=== PATIENT | female | born 1970 | race Caucasian/White ===

== ENCOUNTER 2021-07-05 20:12 | Observation (INO) ==
[2021-07-05] MEDS ORDERED: FAMOTIDINE 20MG IV PUSH 20 MG/5 ML SYR IV STA (20:32)
[2021-07-05] MEDS ORDERED: methylPREDNISolone 125 MG/2 ML VIAL IV STA (20:32)
[2021-07-05] MEDS ORDERED: RACEPINEPHRINE 2.25% NEBU SOLN 0.5 ML VIAL NEB STA ×2 (20:32→23:13)
[2021-07-05] MEDS ORDERED: diphenhydrAMINE 50 MG/ML VIAL IV STA ×2 (20:32→20:41)
[2021-07-05] MEDS ORDERED: diphenhydrAMINE 50 MG/ML VIAL ONE (20:33)
--- NOTE | 2021-07-05 20:34 | Emergency Department Note ---
History of Present Illness General Chief complaint: Allergic Reaction Stated complaint: ALLERGIC REACTION Source: patient Mode of arrival: ambulatory Limitations: no limitations History of Present Illness Provider complaint: voice change, trouble swallowing Onset (ago): hour(s) Location: neck Treatments prior to arrival: none This is a 50-year-old female who presents to the emergency department in significant distress complaining of inability to swallow and sense of throat swelling shut. Patient quickly brought back to D6 by triage nurse and I was called to the room. Patient reported to myself and staff that she had eaten at [employer] just before symptoms started. No prior history of allergic reactions. No known food allergies. No family history of anaphylaxis. Additional history initially deferred due to clinical acuity and patient was quickly treated with multiple medications including IM epinephrine as well as racemic epinephrine. Pt seen during a time of high acuity and national emergency pandemic while wearing PPE. Home Medications Medication Instructions Recorded Confirmed Type citalopram 10 mg tablet (Celexa) 10 mg PO QAM 03/10/21 07/05/21 History cyclosporine 0.05 % eye drops in a 1 drp OPHTHALMIC (EYE) Q12H 03/10/21 07/05/21 History dropperette (Restasis) glucosamine-chondroitin 250 mg-200 2 tab PO QAM 03/10/21 07/05/21 History mg tablet (Osteo Bi-Flex) loratadine 10 mg tablet 10 mg PO QAM PRN 03/10/21 07/05/21 History multivitamin 1 tab PO QAM 03/10/21 07/05/21 History multivitamin 2 tab PO QAM 03/10/21 07/05/21 History olopatadine 0.1 % eye drops 1 drp OPB BID PRN 03/10/21 07/05/21 History wheat dextrin 1 gram chewable 2 g PO QAM 03/10/21 07/05/21 History tablet Allergies Allergy/AdvReac Type Severity Reaction Status Date / Time morphine Allergy Intermediate itching, Verified 07/05/21 22:44 vomiting oxycodone Allergy Intermediate headache, Verified 07/05/21 22:44 vomiting, claminess, unconciousness codeine Allergy Unknown VOMITING Verified 07/05/21 22:44 hydrocodone AdvReac Mild VOMITING Verified 07/05/21 22:44 Past Med/Surg History Social History Smoking Status: Current every day smoker Feels Safe at Home: Yes Review of Systems A total of 10 systems reviewed and were otherwise negative All systems reviewed & are unremarkable except as noted in HPI & below Physical Exam Vital Signs Vital Signs - 24 hr 07/05/21 20:13 07/05/21 20:45 07/05/21 20:57 Temperature 36.6 C Temperature Source Temporal Artery Scan Pulse Rate 72 Pulse Rate [Apical] 99 H 95 H Pulse Rate from SpO2 Sensor Pulse Rhythm Respiratory Rate 16 30 H 28 H Respiratory Effort / Characteristics Blood Pressure 148/78 H Blood Pressure [Right Arm] 136/95 131/67 Blood Pressure Mean 101 Blood Pressure Mean [Right Arm] 108 88 Blood Pressure Position Sitting Pulse Oximetry 100 100 99 Oxygen Delivery Method Room Air Room Air Room Air Sepsis Recent Fever Within 48 Hours No Sepsis New/Unexplained Change in Mental Status No Sepsis Action Taken by Nursing No Action Required 07/05/21 21:01 07/05/21 21:15 07/05/21 21:29 Temperature Temperature Source Pulse Rate 88 87 Pulse Rate [Apical] 97 H Pulse Rate from SpO2 Sensor 87 Pulse Rhythm Regular Respiratory Rate 25 H 17 18 Respiratory Effort / Characteristics Blood Pressure 114/80 Blood Pressure [Right Arm] 127/66 Blood Pressure Mean 91 Blood Pressure Mean [Right Arm] 86 Blood Pressure Position Pulse Oximetry 99 100 100 Oxygen Delivery Method Room Air Room Air Room Air Sepsis Recent Fever Within 48 Hours Sepsis New/Unexplained Change in Mental Status Sepsis Action Taken by Nursing 07/05/21 21:30 07/05/21 22:00 07/05/21 22:30 Temperature Temperature Source Pulse Rate 87 88 89 Pulse Rate [Apical] Pulse Rate from SpO2 Sensor 87 87 89 Pulse Rhythm Respiratory Rate 15 16 13 Respiratory Effort / Characteristics Blood Pressure 126/69 132/66 124/66 Blood Pressure [Right Arm] Blood Pressure Mean 88 88 85 Blood Pressure Mean [Right Arm] Blood Pressure Position Pulse Oximetry 100 100 99 Oxygen Delivery Method Room Air Room Air Room Air Sepsis Recent Fever Within 48 Hours Sepsis New/Unexplained Change in Mental Status Sepsis Action Taken by Nursing 07/05/21 22:35 07/05/21 23:11 07/05/21 23:20 Temperature Temperature Source Pulse Rate Pulse Rate [Apical] 82 93 H Pulse Rate from SpO2 Sensor Pulse Rhythm Respiratory Rate 14 18 Respiratory Effort / Characteristics Non-Labored Spontaneous Blood Pressure Blood Pressure [Right Arm] 139/62 Blood Pressure Mean Blood Pressure Mean [Right Arm] 87 Blood Pressure Position Pulse Oximetry 100 100 100 Oxygen Delivery Method Room Air Room Air Sepsis Recent Fever Within 48 Hours Sepsis New/Unexplained Change in Mental Status Sepsis Action Taken by Nursing 07/06/21 00:05 Temperature Temperature Source Pulse Rate Pulse Rate [Apical] 82 Pulse Rate from SpO2 Sensor Pulse Rhythm Respiratory Rate 14 Respiratory Effort / Characteristics Blood Pressure Blood Pressure [Right Arm] 132/63 Blood Pressure Mean Blood Pressure Mean [Right Arm] 86 Blood Pressure Position Pulse Oximetry 100 Oxygen Delivery Method Room Air Sepsis Recent Fever Within 48 Hours Sepsis New/Unexplained Change in Mental Status Sepsis Action Taken by Nursing GENERAL: alert, anxious appearing, well nourished, moderate distress, hands on throat and upper chest, no obvious facial swelling EYE EXAM: normal conjunctiva, PERRL and EOM's grossly intact OROPHARYNX: no exudate, no erythema, lips, buccal mucosa, and tongue normal and mucous membranes are moist, uvula midline, no tonsillar hypertrophy, no tongue swelling, tongue elevation, soft palate edema, or mucocutaneous lesions NECK: supple, no nuchal rigidity, no adenopathy, non-tender, no stridor LUNGS: Clear to auscultation. Normal chest wall mechanics, no w/r/r, mild tachypnea noted, no hypoxia on telemetry HEART: no murmurs, S1 normal and S2 normal ABDOMEN: abdomen soft, non-tender, normo-active bowel sounds, no masses, no rebound or guarding. BACK: Back is symmetrical on inspection and there is no deformity, no midline tenderness, no CVA tenderness. SKIN: no rashes and no bruising, no urticaria, no diffuse erythroderma UPPER EXTREMITIES: upper extremities are grossly normal. FROM, nml pulses b/l. LOWER EXTREMITIES: No pitting edema. FROM, nml pulses b/l. NEURO EXAM: Normal sensorium, cranial nerves II-XII grossly intact, normal speech, no gross weakness of arms, no gross weakness of legs. Gross sensation intact. Course Course 2035: Remained patient bedside monitoring for changes in her condition well treatment was being initiated and given for 20 minutes. Patient began to show improvement after administration of medications and racemic epi. Patient never tachycardic, no ectopy or dysrhythmia noted. Patient never hypotensive, never hypoxic. Slowly voice began to improve after additional racemic epinephrine given. Patient states no other new food earlier in the day, no other change in activity, no recent travel, no recent exposures. No recent fevers, chills, or sick contacts. No recent sore throat. Patient denies any gagging or choking, no sense of food stuck in his throat or lower esophagus. No hx of GERD. 2255: Pt states feeling improved. Voice almost back to normal. Patient still with intermittent chest burning. 2312: Pt c/o recurrent trouble swallowing and sense of throat swelling. 2354: Patient complaining of nausea although voice and throat swelling seem improved again. Administered Medications Discontinued Medications Diphenhydramine HCl (Diphenhydramine 50 Mg/Ml Vial) 25 mg IV NOW STA Stop: 07/05/21 20:33 Last Admin: 07/05/21 21:00 Dose: Not Given Documented by: [id number] Diphenhydramine HCl (Diphenhydramine 50 Mg/Ml Vial) Confirm Administered Dose 50 mg .ROUTE .[employer]-MED ONE Stop: 07/05/21 20:34 Last Admin: 07/05/21 20:59 Dose: Not Given Documented by: [id number] Diphenhydramine HCl (Diphenhydramine 50 Mg/Ml Vial) 25 mg IV NOW STA Stop: 07/05/21 20:42 Last Admin: 07/05/21 20:35 Dose: 25 mg Documented by: [id number] Epinephrine (Racepinephrine 2.25% Nebu Soln 0.5 Ml Vial) 0.5 ml NEB NOW STA Stop: 07/05/21 20:33 Last Admin: 07/05/21 20:58 Dose: 0.5 ml Documented by: [id number] Epinephrine (Racepinephrine 2.25% Nebu Soln 0.5 Ml Vial) 0.5 ml NEB NOW STA Stop: 07/05/21 23:14 Last Admin: 07/05/21 23:18 Dose: 0.5 ml Documented by: [id number] Epinephrine HCl (Epinephrine Inj 1 Mg/Ml Amp) Confirm Administered Dose 1 mg .ROUTE .STK-MED ONE Stop: 07/05/21 20:40 Last Admin: 07/05/21 20:58 Dose: Not Given Documented by: [id number] Epinephrine HCl (Epinephrine Adult Auto-Inject 0.3 Mg Syr) 0.3 mg IM NOW STA Stop: 07/05/21 20:41 Last Admin: 07/05/21 20:58 Dose: Not Given Documented by: [id number] Epinephrine HCl (Epinephrine Adult Auto-Inject 0.3 Mg Syr) Confirm Administered Dose 0.3 mg IM .STK-MED ONE Stop: 07/05/21 20:42 Last Admin: 07/05/21 20:40 Dose: 0.3 mg Documented by: [id number] Sodium Chloride (Nss) 500 mls @ 999 mls/hr IV .Q31M JUAQUIN Stop: 07/05/21 21:15 Last Infusion: 07/05/21 21:07 Dose: 0 mls/hr Documented by: [id number] Admin: 07/05/21 20:35 Dose: 999 mls/hr Documented by: [id number] Famotidine (Pepcid 20mg Iv Push) 20 mg in 5 mls @ 2.5 mls/min IV NOW STA Stop: 07/05/21 20:33 Last Admin: 07/05/21 20:35 Dose: 2.5 mls/min Documented by: [id number] Methylprednisolone (Methylprednisolone 125 Mg/2 Ml Vial) 125 mg IV NOW STA Stop: 07/05/21 20:33 Last Admin: 07/05/21 20:35 Dose: 125 mg Documented by: [id number] Ondansetron HCl (Ondansetron Inj 2 Mg/Ml 2 Ml Vial) 4 mg IV NOW STA Stop: 07/05/21 21:20 Last Admin: 07/05/21 21:30 Dose: 4 mg Documented by: [id number] Critical Care Time Critical Care Time: Yes Total Critical Care Time: 46 Critical care of 46 min performed to assess and manage high likelihood of life-threatening allergic reaction, involving labs and imaging performed with assessment to evaluate allergic reaction diagnosis with frequent reassessment. This time includes bedside time, treatment discussions with patient/family/consultants, documentation time and excludes procedure time. Medical Decision Making Differential Diagnosis Differential diagnosis includes but is not limited to anaphylaxis, generalized allergic reaction, medication reaction, urticaria, contact dermatitis, scarlet fever, David-Han syndrome, Toxic Epidermal necrolysis Medical Records Attestation: I reviewed the patient's medical records. Home Medications Current Medication List: was personally reviewed by me Laboratory Data Attestation: I reviewed the patient's lab results. Result diagrams: 07/05/21 20:46 07/05/21 20:46 Lab Results 07/05/21 07/05/21 07/05/21 Range/Units 20:46 20:46 20:46 WBC 5.73 (4.8-10.8) K/uL RBC 4.56 (4.2-5.4) M/uL Hgb 14.9 (12.0-16.0) g/dL Hct 42.1 (37-47) % MCV 92.3 (80-100) fL MCH 32.7 (25-34) pg MCHC 35.4 (32-36) g/dL RDW Std Deviation 41.5 (36.4-46.3) fL RDW Coeff of Craig 12.3 (11.5-14.5) % Plt Count 305 (130-400) K/uL MPV 10.4 (7.4-10.4) fL Immature Gran % (Auto) 0.2 % Neut % (Auto) 51.5 % Lymph % (Auto) 41.0 % [place] % (Auto) 5.9 % Eos % (Auto) 0.9 % Baso % (Auto) 0.5 % Neut # (Auto) 2.95 (1.4-6.5) K/uL Lymph # (Auto) 2.35 (1.2-3.4) K/uL [place] # (Auto) 0.34 (0.11-0.59) K/uL Eos # (Auto) 0.05 (0-0.5) K/uL Baso # (Auto) 0.03 (0-0.2) K/uL Immature Gran # (Auto) 0.01 (0.00-0.02) K/uL APTT 29.0 (21.0-31.0) Seconds PTT Ratio 1.1 Sodium 139 (136-145) mmol/L Potassium 3.2 L (3.5-5.1) mmol/L Chloride 107 (98-107) mmol/L Carbon Dioxide 25 (21-32) mmol/L Anion Gap 8.0 (3-11) BUN 16 (7-18) mg/dl Creatinine 0.78 (0.6-1.2) mg/dl Est Cr Clr Drug Dosing 92.3 ml/min Est GFR ( Amer) 102.0 ml/min Est GFR (Non-Af Amer) 88.0 ml/min BUN/Creatinine Ratio 21.0 H (10-20) Glucose 88 (70-99) mg/dl Calcium 9.5 (8.5-10.1) mg/dl Magnesium 2.3 (1.8-2.4) mg/dl Total Bilirubin 0.5 (0.2-1) mg/dl AST 29 (15-37) U/L ALT 41 (12-78) U/L Alkaline Phosphatase 73 (45-117) U/L Troponin I < 0.015 (0-0.045) ng/ml NT-Pro-B Natriuret Pep 40 (0-900) pg/ml Total Protein 8.2 (6.4-8.2) gm/dl Albumin 4.4 (3.4-5.0) gm/dl Globulin 3.8 (2.5-4.0) gm/dl Albumin/Globulin Ratio 1.2 (0.9-2) COVID-19 Eval Order 07/06/21 Range/Units 00:10 WBC (4.8-10.8) K/uL RBC (4.2-5.4) M/uL Hgb (12.0-16.0) g/dL Hct (37-47) % MCV (80-100) fL MCH (25-34) pg MCHC (32-36) g/dL RDW Std Deviation (36.4-46.3) fL RDW Coeff of Craig (11.5-14.5) % Plt Count (130-400) K/uL MPV (7.4-10.4) fL Immature Gran % (Auto) % Neut % (Auto) % Lymph % (Auto) % [place] % (Auto) % Eos % (Auto) % Baso % (Auto) % Neut # (Auto) (1.4-6.5) K/uL Lymph # (Auto) (1.2-3.4) K/uL [place] # (Auto) (0.11-0.59) K/uL Eos # (Auto) (0-0.5) K/uL Baso # (Auto) (0-0.2) K/uL Immature Gran # (Auto) (0.00-0.02) K/uL APTT (21.0-31.0) Seconds PTT Ratio Sodium (136-145) mmol/L Potassium (3.5-5.1) mmol/L Chloride (98-107) mmol/L Carbon Dioxide (21-32) mmol/L Anion Gap (3-11) BUN (7-18) mg/dl Creatinine (0.6-1.2) mg/dl Est Cr Clr Drug Dosing ml/min Est GFR ( Amer) ml/min Est GFR (Non-Af Amer) ml/min BUN/Creatinine Ratio (10-20) Glucose (70-99) mg/dl Calcium (8.5-10.1) mg/dl Magnesium (1.8-2.4) mg/dl Total Bilirubin (0.2-1) mg/dl AST (15-37) U/L ALT (12-78) U/L Alkaline Phosphatase (45-117) U/L Troponin I (0-0.045) ng/ml NT-Pro-B Natriuret Pep (0-900) pg/ml Total Protein (6.4-8.2) gm/dl Albumin (3.4-5.0) gm/dl Globulin (2.5-4.0) gm/dl Albumin/Globulin Ratio (0.9-2) COVID-19 Eval Order Covid19 at [facility] Imaging Data Radiologist's Impression: Chest X-Ray 07/05/21 20:42 SINGLE VIEW CHEST CLINICAL HISTORY: Atypical chest pain. Dyspnea. FINDINGS: An AP, portable, upright chest radiograph is compared to chest x-ray and chest CT dated 03/10/2021. The cardiomediastinal silhouette is unremarkable. There is mild bibasilar atelectasis. The lungs and pleural spaces are otherwise clear. No pneumothorax is seen. The bony thorax is grossly intact. IMPRESSION: No active disease in the chest. ACT 112: Negative or not required by law. Electronically signed by: Miguel Smith M.D. 07/05/2021 9:18 PM ECG Data Attestation: I personally reviewed and interpreted this ECG as follows: Indication: + chest pain Rate (beats per minute): 98 Rhythm: + normal sinus ECG Intervals/blocks: + Normal QRS and + Normal QT ECG [place]: + Normal ECG ST segments: + ST depression (II, V3-6) Additional Comments: Repeat EKG shows normal sinus rhythm at 83, normal axis, normal QRS and QTc, previously seen ST depression has resolved MDM Narrative This is a 50-year-old female presents emergency department after she began developing dysphonia, dysphagia, and sense of throat swelling after eating at [employer]. Prior history of anaphylaxis, no known food allergies. Patient brought immediately back and I was asked to see the patient emergently. IV placed, patient given Solu-Medrol, Benadryl, Pepcid, and racemic epinephrine ordered. RT was contacted to administer this. Patient continued to states she felt worse and was becoming more tachypneic, complaining of chest burning and being unable to swallow, as a result of her reported worsening symptoms, IM epinephrine was also added and administered. Patient began to report improvement following all of these medications. Patient was monitored on telemetry throughout. It was noted the patient's first EKG did have some slight ST depression and on repeat follow-up after her symptoms had improved these ST depressions were gone. I suspect this is likely component of vasospasm related to her allergic reaction such as Kounis Syndrome. While being observed in the emergency room patient did have recurrent sense that her throat was becoming tight and swelling again, she began having worsening dysphonia again, so an additional racemic epinephrine was added. Due to need for recurrent racemic epinephrine and concern for significant initial reaction as well as possible vasospasm and need to monitor for cardiac manifestations due to intermittent reported chest discomfort, case was discussed with hospitalist for additional evaluation and management. Katherin solis did not have any hypoxia or hypotension in the emergency room. No other evidence of evolving angioedema or urticarial rash. Patient verbalized understanding of all results and was in agreement with plan. No other risk factors for ACS. An order was placed for continuous cardiac monitoring. The monitor shows a rate of _92_ with _normal sinus_ rhythm. Impression & Plan Allergic reaction, Dysphonia, Dysphagia, Abnormal ECG Discharge Plan Visit Data Chief Complaint: Allergic Reaction Stated Complaint: ALLERGIC REACTION ED Provider: Lisbeth Estrada Discharge Problem: Allergic reaction, Dysphonia, Dysphagia, Abnormal ECG Forms Stand Alone Forms: [facility] Prescriptions Prescriptions: No Action multivitamin [Hair,Nails and Skin Vitamin] Tablet 2 tab PO QAM RF: 0 multivitamin Tablet 1 tab PO QAM RF: 0 citalopram [Celexa] 10 mg tablet 10 mg PO QAM RF: 0 olopatadine 0.1 % drops 1 drp OPB BID PRN (Reason: Allergy Symptoms) RF: 0 loratadine 10 mg Tablet 10 mg PO QAM PRN (Reason: Allergy Symptoms) RF: 0 glucosamine-chondroitin [Osteo Bi-Flex] 250-200 mg Tablet 2 tab PO QAM RF: 0 Restasis 0.05 % Dropperette 1 drp OPHTHALMIC (EYE) Q12H RF: 0 Benefiber Sugar Free (dextrin) 1 gram Tablet,Chewable 2 g PO QAM RF: 0 Referrals Referrals: Teri Humphreys DO [Primary Care Provider] - Discharge Problem: Allergic reaction Qualifiers: Encounter type: initial encounter Qualified Code(s): T78.40XA - Allergy, unspecified, initial encounter Dysphagia Qualifiers: Dysphagia type: unspecified Qualified Code(s): R13.10 - Dysphagia, unspecified
[2021-07-05] MEDS ORDERED: EPINEPHrine INJ 1 MG/ML AMP ONE (20:39)
[2021-07-05] MEDS ORDERED: EPINEPHrine ADULT AUTO-INJECT 0.3 MG SYR IM STA (20:40)
[2021-07-05] MEDS ORDERED: EPINEPHrine ADULT AUTO-INJECT 0.3 MG SYR IM ONE (20:41)
[2021-07-05] MEDS ORDERED: SODIUM CHLORIDE 0.9% 500 ML IV SCH (20:45)
[2021-07-05] MEDS ORDERED: ONDANSETRON INJ 2 MG/ML 2 ML VIAL IV STA (21:19)
--- NOTE | 2021-07-05 21:19 | XRay Report ---
SINGLE VIEW CHEST CLINICAL HISTORY: Atypical chest pain. Dyspnea. FINDINGS: An AP, portable, upright chest radiograph is compared to chest x-ray and chest CT dated 02/23. The cardiomediastinal silhouette is unremarkable. There is mild bibasilar atelectasis. The peyman ngs and pleural spaces are otherwise clear. No pneumothorax is seen. The bony thorax is grossly intac t. IMPRESSION: No active disease in the chest. ACT 112: Negative or not required by law. Electronically signed by: Miguel Smith M.D. 07/05/2021 9:18 PM
[2021-07-05 21:20] LABS: Basophils # (auto) 0.03 K/uL (0-0.2); Basophils % (auto) 0.5 %; Eosinophils # (auto) 0.05 K/uL (0-0.5); Eosinophils % (auto) 0.9 %; Hematocrit (blood only) 42.1 % (37-47); Hemoglobin 14.9 g/dL (12.0-16.0); Immature Granulocytes # (auto) 0.01 K/uL (0.00-0.02); Immature Granulocytes % (auto) 0.2 %; Lymphocytes # (auto) 2.35 K/uL (1.2-3.4); Mean Corpuscular Hemoglobin 32.7 pg (25-34); Mean Corpuscular Hgb Conc 35.4 g/dL (32-36); Mean Corpuscular Volume 92.3 fL (80-100); Mean Platelet Volume 10.4 fL (7.4-10.4); Monocytes # (auto) 0.34 K/uL (0.11-0.59); Monocytes % (auto) 5.9 %; Neutrophils # (auto) 2.95 K/uL (1.4-6.5); Neutrophils % (auto) 51.5 %; Platelet Count 305 K/uL (130-400); RDW Coefficient of Variation 12.3 % (11.5-14.5); RDW Standard Deviation 41.5 fL (36.4-46.3); Red Blood Count 4.56 M/uL (4.2-5.4); White Blood Count 5.73 K/uL (4.8-10.8)
[2021-07-05 21:28] LABS: Alanine Aminotransferase 41 U/L (12-78); Albumin Level 4.4 gm/dl (3.4-5.0); Aspartate Aminotransferase 29 U/L (15-37); Blood Urea Nitrogen 16 mg/dl (7-18); Calcium 9.5 mg/dl (8.5-10.1); Carbon Dioxide 25 mmol/L (21-32); Chloride 107 mmol/L (98-107); Creatinine Clr Calc Pharmacy 92.3 ml/min; Glucose 88 mg/dl (70-99); Magnesium 2.3 mg/dl (1.8-2.4); Potassium 3.2 mmol/L (3.5-5.1); Sodium 139 mmol/L (136-145)
[2021-07-05 21:33] LABS: Albumin Globulin Ratio 1.2 (0.9-2); Alkaline Phosphatase 73 U/L (45-117); Bilirubin,Total 0.5 mg/dl (0.2-1); Globulin 3.8 gm/dl (2.5-4.0); NT Pro B Type Natriuretic Pept 40 pg/ml (0-900); Total Protein 8.2 gm/dl (6.4-8.2); Troponin I < 0.015 ng/ml (0-0.045)
[2021-07-06 00:06] LABS: Partial Thromboplastin Ratio 1.1
[2021-07-06] MEDS ORDERED: ONDANSETRON INJ 2 MG/ML 2 ML VIAL IV STA (00:26)
[2021-07-06] MEDS ORDERED: POTASSIUM CHLORIDE PWD 20 MEQ PACK PO STA (01:46)
--- NOTE | 2021-07-06 01:47 | History & Physical Report ---
Date of Service July 06, 2021 Assessment & Plan (1) Anaphylactic reaction: Plan: Secondary to food allergen Hypokalemia OBS Medical telemetry Daily loratadine for now Monitor for late phase reaction. May benefit from Allergy consultation. Discharge home with EpiPen Replace potassium DVT prophylaxis. Lovenox subcu Full code Text document was generated using [employer] voice recognition software. It may contain grammatical or spelling errors. Kindly contact undersigned for clarification of any documentation item in question. History of Present Illness Chief Complaint: Allergic reaction Primary Care Provider: Teri Humphreys DO History obtained from patient and records. Medical history significant for osteoarthritis as per records. Last confinement 2015 under Gynecology service for chronic pelvic pain/menorrhagia status post hysterectomy. Patient was driving home from [place] to [place] last night when she experienced throat tightness, inability to swallow, burning chest pain with shortness of breath and voice change a few minutes after consuming a caramel drink purchased from a local [employer] station. Caramel drink tasted a little funny as per patient. No rashes as per patient. No prior episodes as per patient. Significant improvement after Epinephrine, Diphenhydramine, Solu-Medrol, Pepcid administration at the ER. Patient noted recurrence of chest and throat tightness a few hours later at the ER. Subsequent improvement with repeat Epinephrine and Benadryl administration. Medical History as above Surgical History : Hysterectomy, hysteroscopy//endometrial ablation, Lasix surgery, section Family History : Alcoholism, heart disease, lymphoma Personal/Social history : Non-smoker, occasional EtOH intake, elementary schoolteacher Allergies Allergy/AdvReac Type Severity Reaction Status Date / Time morphine Allergy Intermediate itching, Verified 07/05/21 22:44 vomiting oxycodone Allergy Intermediate headache, Verified 07/05/21 22:44 vomiting, claminess, unconciousness codeine Allergy Unknown VOMITING Verified 07/05/21 22:44 hydrocodone AdvReac Mild VOMITING Verified 07/05/21 22:44 Home Medications Medication Instructions Recorded Confirmed Type citalopram 10 mg tablet (Celexa) 10 mg PO QAM 03/10/21 07/05/21 History cyclosporine 0.05 % eye drops in a 1 drp OPHTHALMIC (EYE) Q12H 03/10/21 07/05/21 History dropperette (Restasis) glucosamine-chondroitin 250 mg-200 2 tab PO QAM 03/10/21 07/05/21 History mg tablet (Osteo Bi-Flex) loratadine 10 mg tablet 10 mg PO QAM PRN 03/10/21 07/05/21 History multivitamin 1 tab PO QAM 03/10/21 07/05/21 History multivitamin 2 tab PO QAM 03/10/21 07/05/21 History olopatadine 0.1 % eye drops 1 drp OPB BID PRN 03/10/21 07/05/21 History wheat dextrin 1 gram chewable 2 g PO QAM 03/10/21 07/05/21 History tablet Past Med/Surg History Social History Smoking Status: Never smoker Hx Alcohol Use: No Hx Substance Use: No Preferred Language: Bangladeshi Communication Ability: Effective [employer] Work[employer] Helper Required: No Beliefs That Will Affect Care: None Current Living Situation: Spouse Other Information That Helps Us Care for You: No Feels Safe at Home: Yes Safety Concerns: Feels Safe At This Time Assistive Devices: None Review of Systems Review of Systems: As per HPI, all 10 systems reviewed, all other ROS negative Physical Exam Physical Exam: GENERAL: Comfortable, slightly anxious, dysphonic, no respiratory distress SKIN: Normal color, warm HEENT: [place] palpebral conjunctivae, no ptosis, dry buccal mucosa NECK : Supple, no tenderness CHEST : CTA, no tenderness HEART : RRR, no obvious murmurs ABDOMEN: Some distention, nontender EXTREMITIES : No LE swelling/tenderness, no other conspicuous deformities noted NEUROLOGIC : Coherent, no facial asymmetry, no other gross focality Results & Data Results & Data ([facility]) Vital Signs (Past 12 Hours) Vital Signs Temp Pulse Pulse Resp BP BP Pulse Ox 07/06/21 00:05 82 14 132/63 100 07/05/21 23:20 93 H 18 100 07/05/21 23:11 82 14 139/62 100 07/05/21 22:35 100 07/05/21 22:30 89 13 124/66 99 07/05/21 22:00 88 16 132/66 100 07/05/21 21:30 87 15 126/69 100 07/05/21 21:29 87 18 100 07/05/21 21:15 88 17 114/80 100 07/05/21 21:01 97 H 25 H 127/66 99 07/05/21 20:57 95 H 28 H 131/67 99 07/05/21 20:45 99 H 30 H 136/95 100 07/05/21 20:13 36.6 C 72 16 148/78 H 100 Laboratory Results Laboratory Results WBC 5.73 K/uL (4.8-10.8) 07/05/21 20:46 RBC 4.56 M/uL (4.2-5.4) 07/05/21 20:46 Hgb 14.9 g/dL (12.0-16.0) 07/05/21 20:46 Hct 42.1 % (37-47) 07/05/21 20:46 MCV 92.3 fL (80-100) 07/05/21 20:46 MCH 32.7 pg (25-34) 07/05/21 20:46 MCHC 35.4 g/dL (32-36) 07/05/21 20:46 RDW Std Deviation 41.5 fL (36.4-46.3) 07/05/21 20:46 RDW Coeff of Craig 12.3 % (11.5-14.5) 07/05/21 20:46 Plt Count 305 K/uL (130-400) 07/05/21 20:46 MPV 10.4 fL (7.4-10.4) 07/05/21 20:46 Immature Gran % (Auto) 0.2 % 07/05/21 20:46 Neut % (Auto) 51.5 % 07/05/21 20:46 Lymph % (Auto) 41.0 % 07/05/21 20:46 Beadle % (Auto) 5.9 % 07/05/21 20:46 Eos % (Auto) 0.9 % 07/05/21 20:46 Baso % (Auto) 0.5 % 07/05/21 20:46 Neut # (Auto) 2.95 K/uL (1.4-6.5) 07/05/21 20:46 Lymph # (Auto) 2.35 K/uL (1.2-3.4) 07/05/21 20:46 Beadle # (Auto) 0.34 K/uL (0.11-0.59) 07/05/21 20:46 Eos # (Auto) 0.05 K/uL (0-0.5) 07/05/21 20:46 Baso # (Auto) 0.03 K/uL (0-0.2) 07/05/21 20:46 Immature Gran # (Auto) 0.01 K/uL (0.00-0.02) 07/05/21 20:46 APTT 29.0 Seconds (21.0-31.0) 07/05/21 20:46 PTT Ratio 1.1 07/05/21 20:46 Sodium 139 mmol/L (136-145) 07/05/21 20:46 Potassium 3.2 mmol/L (3.5-5.1) L 07/05/21 20:46 Chloride 107 mmol/L (98-107) 07/05/21 20:46 Carbon Dioxide 25 mmol/L (21-32) 07/05/21 20:46 Anion Gap 8.0 (3-11) 07/05/21 20:46 BUN 16 mg/dl (7-18) 07/05/21 20:46 Creatinine 0.78 mg/dl (0.6-1.2) 07/05/21 20:46 Est Cr Clr Drug Dosing 92.3 ml/min 07/05/21 20:46 Est GFR ( Amer) 102.0 ml/min 07/05/21 20:46 Est GFR (Non-Af Amer) 88.0 ml/min 07/05/21 20:46 BUN/Creatinine Ratio 21.0 (10-20) H 07/05/21 20:46 Glucose 88 mg/dl (70-99) 07/05/21 20:46 Calcium 9.5 mg/dl (8.5-10.1) 07/05/21 20:46 Magnesium 2.3 mg/dl (1.8-2.4) 07/05/21 20:46 Total Bilirubin 0.5 mg/dl (0.2-1) 07/05/21 20:46 AST 29 U/L (15-37) 07/05/21 20:46 ALT 41 U/L (12-78) 07/05/21 20:46 Alkaline Phosphatase 73 U/L (45-117) 07/05/21 20:46 Troponin I < 0.015 ng/ml (0-0.045) 07/06/21 00:04 NT-Pro-B Natriuret Pep 40 pg/ml (0-900) 07/05/21 20:46 Total Protein 8.2 gm/dl (6.4-8.2) 07/05/21 20:46 Albumin 4.4 gm/dl (3.4-5.0) 07/05/21 20:46 Globulin 3.8 gm/dl (2.5-4.0) 07/05/21 20:46 Albumin/Globulin Ratio 1.2 (0.9-2) 07/05/21 20:46 COVID-19 Eval Order Covid19 at [facility] 07/06/21 00:10 SARS-CoV-2 (PCR) NEGATIVE (Negative) 07/06/21 00:10 Impressions Chest X-Ray 07/05/21 20:42 SINGLE VIEW CHEST CLINICAL HISTORY: Atypical chest pain. Dyspnea. FINDINGS: An AP, portable, upright chest radiograph is compared to chest x-ray and chest CT dated 03/10/2021. The cardiomediastinal silhouette is unremarkable. There is mild bibasilar atelectasis. The lungs and pleural spaces are otherwise clear. No pneumothorax is seen. The bony thorax is grossly intact. IMPRESSION: No active disease in the chest. ACT 112: Negative or not required by law. Electronically signed by: Miguel Smith M.D. 07/05/2021 9:18 PM Diagnostic Findings EKG as per my interpretation rate 95, NSR, normal axis, ST depression inferior and lateral leads
[2021-07-06] MEDS ORDERED: POTASSIUM CHLORIDE 40 MEQ in SODIUM CHLORIDE 0.9% 1000ML 1,000 ML IV ONE (01:48)
[2021-07-06] MEDS ORDERED: diphenhydrAMINE 50 MG/ML VIAL IV PRN (01:50)
[2021-07-06] MEDS ORDERED: PROMETHAZINE HCL 12.5 MG in SODIUM CHLORIDE 0.9% 50 ML IV PRN (04:38)
[2021-07-06] MEDS ORDERED: LORazepam 0.5 MG/1 ML VIAL IV PRN (04:38)
[2021-07-06] MEDS ORDERED: traMADol HCL 50 MG TABLET PO PRN (04:38)
[2021-07-06] MEDS ORDERED: ACETAMINOPHEN 325 MG TAB PO PRN (04:38)
[2021-07-06] MEDS ORDERED: NON-FORMULARY MEDICATION (Cyclosporine [Restasis] 0.05 % Dropperette) OP SCH (04:38)
[2021-07-06 06:01] LABS: Hemoglobin 13.3 g/dL (12.0-16.0); Immature Granulocytes # (auto) 0.01 K/uL (0.00-0.02); Immature Granulocytes % (auto) 0.2 %; Lymphocytes # (auto) 0.58 K/uL (1.2-3.4); Lymphocytes % (auto) 9.6 %; Mean Corpuscular Hemoglobin 32.9 pg (25-34); Mean Corpuscular Volume 94.1 fL (80-100); Monocytes # (auto) 0.12 K/uL (0.11-0.59); Neutrophils # (auto) 5.35 K/uL (1.4-6.5); Neutrophils % (auto) 88.2 %; Platelet Count 265 K/uL (130-400); RDW Coefficient of Variation 12.5 % (11.5-14.5); RDW Standard Deviation 43.1 fL (36.4-46.3); Red Blood Count 4.04 M/uL (4.2-5.4); White Blood Count 6.06 K/uL (4.8-10.8)
[2021-07-06 06:26] LABS: BUN Creatinine Ratio 18.9 (10-20); Calcium 8.6 mg/dl (8.5-10.1); Creatinine Clr Calc Pharmacy 114.2 ml/min; Est GFR (African American) 120.4 ml/min; Est GFR (Non-African American) 103.9 ml/min; Potassium 4.7 mmol/L (3.5-5.1)
--- NOTE | 2021-07-06 08:31 | Electrocardiogram Report ---
Test Reason : Blood Pressure : / mmHG Vent. Rate : 098 BPM Atrial Rate : 098 BPM P-R Int : 170 ms QRS Dur : 096 ms QT Int : 370 ms P-R-T Axes : 074 017 060 degrees QTc Int : 472 ms Sinus rhythm with Premature atrial complexes Nonspecific ST abnormality Abnormal ECG When compared with ECG of 10-MAR-2021 16:45, Premature atrial complexes are now Present Vent. rate has increased BY 36 BPM Confirmed by Hung Kingston ([id number]) on 07/06/2021 8:31:09 AM Referred By: REFERRED SELF Confirmed By:Chandra Kingston
--- NOTE | 2021-07-06 08:32 | Electrocardiogram Report ---
Test Reason : Blood Pressure : / mmHG Vent. Rate : 083 BPM Atrial Rate : 083 BPM P-R Int : 192 ms QRS Dur : 086 ms QT Int : 388 ms P-R-T Axes : 076 017 067 degrees QTc Int : 455 ms Normal sinus rhythm Normal ECG When compared with ECG of 05-JUL-2021 20:56, (unconfirmed) Premature atrial complexes are no longer Present Confirmed by Hung Kingston ([id number]) on 07/06/2021 8:31:46 AM Referred By: REFERRED SELF Confirmed By:Chandra Kingston
[2021-07-06] MEDS ORDERED: ENOXAPARIN INJ 40 MG/0.4 ML SYR SQ SCH (09:00)
[2021-07-06] MEDS ORDERED: LORATADINE 10 MG TAB PO SCH (09:00)
[2021-07-06] MEDS ORDERED: NON-FORMULARY MEDICATION (Glucosamine-Chondroitin [Osteo Bi-Flex] 250-200 mg Tablet) PO SCH (09:00)
[2021-07-06] MEDS ORDERED: CITALOPRAM 20 MG TAB PO SCH (09:00)
[2021-07-06] MEDS ORDERED: MULTIVITAMIN TAB PO SCH (09:00)
--- NOTE | 2021-07-06 14:13 | Discharge Summary ---
Date of Service July 06, 2021 Admission HPI Per Admitting Provider History obtained from patient and records. Medical history significant for osteoarthritis as per records. Last confinement 2015 under Gynecology service for chronic pelvic pain/menorrhagia status post hysterectomy. Patient was driving home from [place] to [place] last night when she experienced throat tightness, inability to swallow, burning chest pain with shortness of breath and voice change a few minutes after consuming a caramel drink purchased from a local gas station. Caramel drink tasted a little funny as per patient. No rashes as per patient. No prior episodes as per patient. Significant improvement after Epinephrine, Diphenhydramine, Solu-Medrol, Pepcid administration at the ER. Patient noted recurrence of chest and throat tightness a few hours later at the ER. Subsequent improvement with repeat Epinephrine and Benadryl administration. Medical History as above Surgical History : Hysterectomy, hysteroscopy//endometrial ablation, Lasix surgery, section Family History : Alcoholism, heart disease, lymphoma Personal/Social history : Non-smoker, occasional EtOH intake, elementary schoolteacher Admission Exam Per Admitting Provider GENERAL: Comfortable, slightly anxious, dysphonic, no respiratory distress SKIN: Normal color, warm HEENT: [place] palpebral conjunctivae, no ptosis, dry buccal mucosa NECK : Supple, no tenderness CHEST : CTA, no tenderness HEART : RRR, no obvious murmurs ABDOMEN: Some distention, nontender EXTREMITIES : No LE swelling/tenderness, no other conspicuous deformities noted NEUROLOGIC : Coherent, no facial asymmetry, no other gross focality Discharge Data Allergies Allergy/AdvReac Type Severity Reaction Status Date / Time morphine Allergy Intermediate itching, Verified 07/05/21 22:44 vomiting oxycodone Allergy Intermediate headache, Verified 07/05/21 22:44 vomiting, claminess, unconciousness codeine Allergy Unknown VOMITING Verified 07/05/21 22:44 hydrocodone AdvReac Mild VOMITING Verified 07/05/21 22:44 Consultations 07/05/21 23:30 ED Decision to Admit Stat Hospital Course (1) Anaphylactic reaction: Secondary to food allergen Hypokalemia OBS Medical telemetry Daily loratadine for now Monitor for late phase reaction. May benefit from Allergy consultation. Discharge home with EpiPen Replace potassium DVT prophylaxis. Lovenox subcu Full code Text document was generated using [employer] voice recognition software. It may contain grammatical or spelling errors. Kindly contact undersigned for clarification of any documentation item in question. Discharge Plan Discharge Items Patient Disposition: Home - Self-Care Reason For Visit: SOB Discharge Diagnosis: Allergic Reaction Activity: Resume your previous activity Non-emergency contact: Primary Care Provider Call non-emergency contact if: you have any medication questions Follow-up/Referrals: Teri Humphreys DO [Primary Care Provider] - (Date & Time 07/11/2021 2:20 PM Provider Teri Humphreys DO Department [facility] ) Diet: Low Fiber Addtl Attending Provider Instructions: Follow up with your primary care provider Dr. Humphreys on 07/11/2021 @ 2:20 PM at the [facility] You will need to see an consumer loan specialist for further testing (your provider can arrange for the referral) Please avoid any chemical household cleaning product for now as well as caramel product Seek medical attention if symptoms reoccur or develops any shortness of breath or difficultly to swallow Continue soft diet and advance as tolerated Please do not drive or operate any machine after taking the benadryl due to drowsiness Pending Studies at Discharge: No Stand-Alone Forms: My Record[employer], Smoking Cessation Medications and DC Order Prescriptions: New prednisone 20 mg tablet 20 mg PO HS Qty: 4 RF: 0 epinephrine [EpiPen] 0.3 mg/0.3 mL auto-injector 0.3 mg IM UD PRN (Reason: anaphylaxis) Qty: 1 RF: 0 diphenhydramine HCl [Benadryl] 25 mg capsule 25 mg PO Q6H PRN (Reason: allergic reaction) Qty: 30 RF: 0 famotidine 20 mg tablet 20 mg PO DAILY Qty: 7 RF: 0 Continued multivitamin Tablet 2 tab PO QAM RF: 0 multivitamin Tablet 1 tab PO QAM RF: 0 citalopram [Celexa] 10 mg tablet 10 mg PO QAM RF: 0 olopatadine 0.1 % drops 1 drp OPB BID PRN (Reason: Allergy Symptoms) RF: 0 loratadine 10 mg Tablet 10 mg PO QAM PRN (Reason: Allergy Symptoms) RF: 0 glucosamine-chondroitin [Osteo Bi-Flex] 250-200 mg Tablet 2 tab PO QAM RF: 0 Restasis 0.05 % Dropperette 1 drp OPHTHALMIC (EYE) Q12H RF: 0 wheat dextrin 1 gram Tablet,Chewable 2 g PO QAM RF: 0 Discharge Orders: Discharge Order (Routine); Ordered 07/06/21 Ordered By: Wale Alaniz Admission Data Admit Date/Time: 07/06/21 01:50 Attending Provider: Wale Alaniz Admit Provider: Wale Alaniz Primary Care Provider: Teri Humphreys Other Providers: Marcelo Santiago Other Interventions: Discharge Summary Assessment (RN) Last Done: 07/06/21 15:19
== END 2021-07-06 15:26 | disposition home or self-care (01) ==
LOC: EDINP 20:12 → ED 20:12 → EDINP 07-06 08:07